=== PATIENT | female | born 1955 | race Hispanic/Latino ===

== ENCOUNTER 2021-10-19 20:46 | Emergency (ER) | payer SELFPAY ==
--- OUTSIDE RECORDS SUMMARY | 2021-10-19 20:50 | XMS REPORT | Continuity of Care Document ---
:1955 Author Organization [facility] t Address [address] [place] [address] Care Team Providers Name Role Phone BRIE Attending Clinician Unavailable Luke TORRES Attending Clinician Tavo Rousseau MD Attending Clinician ÁNGEL Attending Clinician Unavailable Thelma Purvis MD Attending Clinician THELMA PURVIS Attending Clinician Unavailable THELMA PURVIS Admitting Clinician Unavailable Payers Payer Name Policy Type Policy Number Effective Date Expiration Date S ource Problems Condition Condition Condition Status Onset Resolution Last Treating Co mments Source Name Details Category Date Date Treatment Clinician Date Malignant Malignant Disease Active [facility] neoplasm neoplasm 01-03 [facility] of 00:00: of upper-oute upper-oute 00 Me dicin r quadrant r quadrant e of right of right breast in breast in female, female, estrogen estrogen receptor receptor positive positive (HCCode) (HCCode) No known No known Disease [facility] r active active [facility] problems problems of Medicin e Allergies, Adverse Reactions, Alerts Allergy Allergy Status Severity Reaction(s) Onset Inactive Treating Comm ents Source Name Type Date Date Clinician Codeine Propensi Active Severe Shaky and [facility] to 06-19 [facility] adverse 00:00: of reaction 00 Medicin s to e drug CODEINE Allergy Active [facility] Social History Social Habit Start Date Stop Date Quantity Comments Source Alcohol intake [facility] History [facility] Alcohol [facility] or [facility] Std Drinks Medicine History [facility] Alcohol [facility] or [facility] Binge Medicine Sex Assigned At [facility] llege of Medicine History [facility] Alcohol 2018-11-29 2018-11-29 1 [facility] or College of Frequency 00:00:00 00:00:00 Medicine Smoking Status Start Date Stop Date Source Former smoker 2019-03-04 00:00:00 2019-03-04 00:00:00 [facility] Medications Ordered Filled Start Stop Current Ordering Indication Dosage Frequency Signature Comments Components Source Medication Medication Date Date Medication? Clinician (SIG) Name Name FLUTICASONE 2018-05 Yes 50mg Apply 50 [facility] PROPIONATE 0-25 mg [facility]ary EX 13:48: topically of 59 daily. Medicin Indication e s: 2 sprays in each nostril Magic 2018-05 Yes [id number] Swish and [place] [facility] Mouthwash 0-25 swallow Deary 00:00: 5-10 mL of 00 Q6H PRN1 Medicin part e Diphenhydr amine 12.5 mg/5 mL; 1 part Viscous lidocaine 2% (20mg/mL); 1 part Maalox (60mL) nystatin 2018-05 Yes 1{appli Apply 1 [place] [facility] (MYCOSTATIN 0-09 cation} applicatio Deary ) powder 00:00: n of 00 topically Medicin four times e daily. FLUTICASONE 2018-05 Yes 50mg Apply 50 [facility] PROPIONATE 0-04 mg Deary EX 15:13: topically of 37 daily. Medicin Indication e s: 2 sprays in each nostril dexamethaso 2018-05 Yes [id number] Take 2 Bin ne 0-04 tablets PO [facility]ary (DECADRON) 00:00: BID x3 of 4 MG tablet 00 days Medicin starting e the day before chemo sodium 2018-05 Yes 1{spray 1 [place] by [facility] chloride 0-04 } Nasal [place]ary (OCEAN) 00:00: route as of 0.65 % 00 needed for Medicin nasal spray Congestion e . loperamide 2018-05 Yes 1{tbl} Take 1 Tab [facility] (IMODIUM 0-04 by mouth 4 Colle ge A-D) 2 MG 00:00: times of tablet 00 daily as Medicin needed for e Diarrhea. dexamethaso 2018-05 Yes [id number] Take 2 Bin ne 0-04 tablets PO Deary (DECADRON) 00:00: BID x3 of 4 MG tablet 00 days Medicin starting e the day before chemo sodium 2018-05 Yes 1{spray 1 [place] by [facility] chloride 0-04 } Nasal [place] (OCEAN) 00:00: route as of 0.65 % 00 needed for Medicin nasal spray Congestion e . loperamide 2018-05 Yes 1{tbl} Take 1 Tab [facility] (IMODIUM 0-04 by mouth 4 Colle ge A-D) 2 MG 00:00: times of tablet 00 daily as Medicin needed for e Diarrhea. FLUTICASONE 2018- Yes 50mg Apply 50 [facility] PROPIONATE 8-16 mg Deary EX 16:57: topically of 14 daily. Medicin Indication e s: 2 sprays in each nostril ondansetron 2019- Yes [id number] 8mg Take 1 Tab Bin (ZOFRAN-ODT 8-16 by mouth [place] ) 8 mg 00:00: every 8 of disintegrat 00 hours as Medi sylvia ing tablet needed for e Nausea (chemother apy induced nausea). promethazin Yes [id number] 25mg Take 1 Tab Bin e 8-16 by mouth [place]ary (PHENERGAN) 00:00: every 6 of 25 MG 00 hours as Medicin tablet needed for e Nausea or Other (chemother apy induced nausea). lidocaine-p Yes [id number] Apply to [facility] rilocaine 8-[address] ([facility]) 00:00: hour of 2.5-2.5 % 00 before use Medi sylvia cream e ondansetron 2018- Yes [id number] 8mg Take 1 Tab Bin (ZOFRAN-ODT 8-16 by mouth [place] ) 8 mg 00:00: every 8 of disintegrat 00 hours as Medi sylvia ing tablet needed for e Nausea (chemother apy induced nausea). promethazin Yes [id number] 25mg Take 1 Tab [facility] e 8-16 by mouth Deary (PHENERGAN) 00:00: every 6 of 25 MG 00 hours as Medicin tablet needed for e Nausea or Other (chemother apy induced nausea). dexamethaso Yes [id number] Take 2 Bin ne 8-16 tablets PO Deary (DECADRON) 00:00: BID x3 of 4 MG tablet 00 days Medicin starting e the day before chemo lidocaine-p 2018- Yes [id number] Apply to [facility] rilocaine 8-[address] (EMLA) 00:00: hour of 2.5-2.5 % 00 before use Medi sylvia cream e ondansetron 2019- Yes [id number] 8mg Take 1 Tab [facility] (ZOFRAN-ODT 8-16 by mouth [place] ) 8 mg 00:00: every 8 of disintegrat 00 hours as Medi sylvia ing tablet needed for e Nausea (chemother apy induced nausea). promethazin 2019- Yes [id number] 25mg Take 1 Tab Bin e 8-16 by mouth [facility] (PHENERGAN) 00:00: every 6 of 25 MG 00 hours as Medicin tablet needed for e Nausea or Other (chemother apy induced nausea). lidocaine-p 2019- Yes [id number] Apply to [facility] rilocaine 8-16 port 1 [facility] (EMLA) 00:00: hour of 2.5-2.5 % 00 before use Medi sylvia cream e dexamethaso 2018- 2019- No [id number] Take 2 [facility] ne 8-16 10-04 tablets PO Deary (DECADRON) 00:00: 00:00 BID x3 of 4 MG tablet 00 :00 days Medicin starting e the day before chemo tramadol 2018- 2019- No 50mg Take 50 mg [facility] (ULTRAM) 50 12-16 by mouth. Co llege MG tablet 00:00: 04:59 of 00 :00 Medicin e tramadol 2018-0 2019- No 50mg Take 50 mg [facility] (ULTRAM) 50 12-16 by mouth. Co llege MG tablet 00:00: 04:59 of 00 :00 Medicin e cholecalcif 2019-0 Yes TAKE 1 [facility] 8-02 TABLET College (D3-50) 00:00: (50,000 of 01026 units 00 UNITS Medicin CAPS TOTAL) BY e MOUTH ONCE A WEEK. cholecalcif 2019-0 Yes TAKE 1 [facility] 8-02 TABLET College (D3-50) 00:00: (50,000 of 44753 units 00 UNITS Medicin CAPS TOTAL) BY e MOUTH ONCE A WEEK. cholecalcif 2019-0 Yes TAKE 1 [facility] 8-02 TABLET [employer] (D3-50) 00:00: (50,000 of 18576 units 00 UNITS Medicin CAPS TOTAL) BY e MOUTH ONCE A WEEK. metoprolol 2017- Yes 25mg Take 25 mg [facility] (TOPROL-XL) 2-06 by mouth. Col lege 25 MG XL 00:00: of tablet 00 Medicin e metoprolol 2017-0 Yes 25mg Take 25 mg [facility] (TOPROL-XL) 2-06 by mouth. Col lege 25 MG XL 00:00: of tablet 00 Medicin e metoprolol 2017-0 Yes 25mg Take 25 mg [facility] (TOPROL-XL) 2-06 by mouth. Col lege 25 MG XL 00:00: of tablet 00 Medicin e metoprolol 2017-0 Yes 25mg Take 25 mg [facility] (TOPROL-XL) 2-06 by mouth. Col lege 25 MG XL 00:00: of tablet 00 Medicin e lisinopril- 2015-05 Yes 1{tbl} Take 1 Tab [facility] hydrochloro 2-23 by mouth. Col lege thiazide 00:00: of (PRINZIDE, 00 Medicin ZESTORETIC) e 20-25 MG per tablet lisinopril- 2015-05 Yes 1{tbl} Take 1 Tab [facility] hydrochloro 2-23 by mouth. Col lege thiazide 00:00: of (PRINZIDE, 00 Medicin ZESTORETIC) e 20-25 MG per tablet sertraline 2015-05 Yes 100mg Take 100 [facility] (ZOLOFT) 2-23 mg by College 100 MG 00:00: mouth. of tablet 00 Medicin e simvastatin 2015-05 Yes 40mg Take 40 mg [facility] (ZOCOR) 40 2-23 by mouth. Ty ege MG tablet 00:00: of Medicin e sertraline 2015-05 Yes 100mg Take 100 [facility] (ZOLOFT) 2-23 mg by College 100 MG 00:00: mouth. of tablet 00 Medicin e simvastatin 2015-05 Yes 40mg Take 40 mg Bin (ZOCOR) 40 2-23 by mouth. Ty ege MG tablet 00:00: of Medicin e lisinopril- 2015-05 Yes 1{tbl} Take 1 Tab Bin hydrochloro 2-23 by mouth. Col lege thiazide 00:00: of (PRINZIDE, 00 Medicin ZESTORETIC) e 20-25 MG per tablet sertraline 2015-05 Yes 100mg Take 100 [facility] (ZOLOFT) 2-23 mg by College 100 MG 00:00: mouth. of tablet 00 Medicin e simvastatin 2015-05 Yes 40mg Take 40 mg Bin (ZOCOR) 40 2-23 by mouth. Ty ege MG tablet 00:00: of 00 Medicin e lisinopril- 2015-05 Yes 1{tbl} Take 1 Tab Bin hydrochloro 2-23 by mouth. Col lege thiazide 00:00: of (PRINZIDE, 00 Medicin ZESTORETIC) e 20-25 MG per tablet sertraline 2015-05 Yes 100mg Take 100 [facility] (ZOLOFT) 2-23 mg by College 100 MG 00:00: mouth. of tablet 00 Medicin e simvastatin 2015-05 Yes 40mg Take 40 mg [facility] (ZOCOR) 40 2-23 by mouth. Ty ege MG tablet 00:00: of Medicin e fenofibrate 2015-05 Yes 160mg Take 160 [facility] (LOFIBRA) 1-28 mg by College 160 MG 00:00: mouth. of tablet 00 Medicin e fenofibrate 2015-05 Yes 160mg Take 160 [facility] (LOFIBRA) 1-28 mg by College 160 MG 00:00: mouth. of tablet 00 Medicin e fenofibrate 2015-05 Yes 160mg Take 160 [facility] (LOFIBRA) 1-28 mg by College 160 MG 00:00: mouth. of tablet 00 Medicin e fenofibrate 2015-05 Yes 160mg Take 160 [facility] (LOFIBRA) 1-28 mg by College 160 MG 00:00: mouth. of tablet 00 Medicin e Immunizations Ordered Immunization Filled Immunization Date Status Commen ts Source Name Name Influenza Quad-PF 2018-01-28 Completed [facility] 00:00:00 of Medicine Influenza 2018-01-28 Completed [facility] Quadrivalent 3YRS+ 00:00:00 of Med icine Influenza Quad-PF 2018-01-28 Completed [facility] 00:00:00 of Medicine Influenza 2018-01-28 Completed [facility] Quadrivalent 3YRS+ 00:00:00 of Med icine Influenza Quad-PF 2018-01-28 Completed [facility] 00:00:00 of Medicine Influenza 2018-01-28 Completed [facility] Quadrivalent 3YRS+ 00:00:00 of Med icine Influenza Quad-PF 2018-01-28 Completed [facility] 00:00:00 of Medicine Influenza 2018-01-28 Completed [facility] Quadrivalent 3YRS+ 00:00:00 of Med icine Influenza Quad-PF 2017-01-23 Completed [facility] 00:00:00 of Medicine Influenza Quad-PF 2017-01-23 Completed [facility] 00:00:00 of Medicine Influenza Quad-PF 2017-01-23 Completed [facility] 00:00:00 of Medicine Influenza Quad-PF 2017-01-23 Completed [facility] 00:00:00 of Medicine Vital Signs Vital Name Observation Time Observation Value Comments Source Systolic blood 2019-03-04 13:44:00 151 mm[Hg] [facility] Medicine Diastolic blood 2019-03-04 13:44:00 67 mm[Hg] [facility] Medicine Heart rate 2019-03-04 13:44:00 60 /min [facility] Body temperature 2019-03-04 13:44:00 36.67 [facility] Respiratory rate 2019-03-04 13:44:00 16 /min [facility] Body height 2019-03-04 13:44:00 152.4 cm [facility] Body weight 2019-03-04 13:44:00 88.996 kg [facility] BMI 2019-03-04 13:44:00 38.32 kg/m2 [facility] BMI 2019-02-11 15:12:00 37.69 kg/m2 [facility] Systolic blood 2019-02-11 15:12:00 138 mm[Hg] [facility] Medicine Diastolic blood 2019-02-11 15:12:00 68 mm[Hg] [facility] Medicine Heart rate 2019-02-11 15:12:00 54 /[facility] temperature 2019-02-11 15:12:00 36.44 [facility] Body height 2019-02-11 15:12:[facility] Body weight 2019-02-11 15:12:00 87.544 kg [facility] Systolic blood 2018-12-24 16:10:00 134 mm[Hg] [facility] Medicine Diastolic blood 2018-12-24 16:10:00 73 mm[Hg] [facility] Medicine Heart rate 2018-12-24 16:10:00 64 /min [facility] Body temperature 2018-12-24 16:10:00 36.67 [facility] Respiratory rate 2018-12-24 16:10:00 16 /min [facility] Body height 2018-12-24 16:10:00 152.4 cm [facility] Body weight 2018-12-24 16:10:00 86.183 kg [facility] BMI 2018-12-24 16:10:00 37.11 kg/m2 [facility] Systolic blood 2018-12-24 14:11:00 134 mm[Hg] [facility] Medicine Diastolic blood 2018-12-24 14:11:00 73 mm[Hg] [facility] Medicine Heart rate 2018-12-24 14:11:00 64 /min [facility] Body temperature 2018-12-24 14:11:00 36.67 [facility] Body height 2018-12-24 14:11:00 152.4 cm [facility] Body weight 2018-12-24 14:11:00 86.183 kg [facility] BMI 2018-12-24 14:11:00 37.11 kg/m2 [facility] Procedures This patient has no known procedures. Plan of Care Planned Activity Planned Date Details Comments Source Diagnostic Test 2018-12-24 ECHO,COMPLETE WITH Expected: [facility] Pending 00:00:00 SALINE [code = 12/24/2018, of Medicine 93845-1] Expires: 12/25/2019 Future Scheduled COLON CANCER [facility] egmary Test SCREENING: of Medicine COLONOSCOPY [code = COLON CANCER SCREENING: COLONOSCOPY] Future Scheduled TETANUS SHOT (ADULT) [facility] Test [code = TETANUS SHOT of Medi cine (ADULT)] Future Scheduled BMI FOLLOW UP PLAN [facility] Test [code = BMI FOLLOW UP of Med icine PLAN] Future Scheduled HEPATITIS C SCREENING [facility] Test [code = HEPATITIS C of Medic ine SCREENING] Future Scheduled FALL SCREEN [code = [employer] Test FALL SCREEN] of Medicine Future Scheduled OSTEOPOROSIS [facility] Test SCREENING [code = of Medicin e OSTEOPOROSIS SCREENING] Future Scheduled PNEUMOVAX >=65 [facility] Co llege Test (PPSV23) [code = of Medicine PNEUMOVAX >=65 (PPSV23)] Future Scheduled PREVNAR >= 65 (PCV13) [employer] Test [code = PREVNAR >= 65 of Med icine (PCV13)] Future Scheduled FLU VACCINE > 6 [facility] C ollege Test MONTHS [code = FLU of Medici ne VACCINE > 6 MONTHS] Future Scheduled MAMMOGRAM ANNUAL [facility] College Test [code = MAMMOGRAM of Medicin e ANNUAL] Future Scheduled COLON CANCER [facility] Test SCREENING: of Medicine COLONOSCOPY [code = COLON CANCER SCREENING: COLONOSCOPY] Future Scheduled TETANUS SHOT (ADULT) [place] [facility] [employer] Test [code = TETANUS SHOT of Medi cine (ADULT)] Future Scheduled BMI FOLLOW UP PLAN [facility] r College Test [code = BMI FOLLOW UP of Med icine PLAN] Future Scheduled HEPATITIS C SCREENING [employer] Test [code = HEPATITIS C of Medic ine SCREENING] Future Scheduled FALL SCREEN [code = [employer] Test FALL SCREEN] of Medicine Future Scheduled OSTEOPOROSIS [facility] Test SCREENING [code = of Medicin e OSTEOPOROSIS SCREENING] Future Scheduled PNEUMOVAX >=65 [facility] Co [facility]lege Test (PPSV23) [code = of Medicine PNEUMOVAX >=65 (PPSV23)] Future Scheduled PREVNAR >= 65 (PCV13) [employer] Test [code = PREVNAR >= 65 of Med icine (PCV13)] Future Scheduled FLU VACCINE > 6 [facility] C ollege Test MONTHS [code = FLU of Medici ne VACCINE > 6 MONTHS] Future Scheduled MAMMOGRAM ANNUAL [facility] College Test [code = MAMMOGRAM of Medicin e ANNUAL] Future Scheduled OTHER SUPPLY [code = Ordered: [facility] College Test NOCPT] 12/24/2018 of Medicine Future Scheduled CBC W/AUTO DIFF WITH Ordered: [facility] College Test PLATELETS [code = 12/24/2018 of Medicin e 27432-5] Future Scheduled COMPREHENSIVE Ordered: [facility] Col [facility]ge Test METABOLIC PANEL [code 12/24/2018 of Med icine = 37335-0] Future Scheduled COLON CANCER [facility] Test SCREENING: of Medicine COLONOSCOPY [code = COLON CANCER SCREENING: COLONOSCOPY] Future Scheduled TETANUS SHOT (ADULT) [place] [facility] [employer] Test [code = TETANUS SHOT of Medi cine (ADULT)] Future Scheduled BMI FOLLOW UP PLAN [employer] Test [code = BMI FOLLOW UP of Med icine PLAN] Future Scheduled HEPATITIS C SCREENING [employer] Test [code = HEPATITIS C of Medic ine SCREENING] Future Scheduled FALL SCREEN [code = [employer] Test FALL SCREEN] of Medicine Future Scheduled OSTEOPOROSIS [facility] Test SCREENING [code = of Medicin e OSTEOPOROSIS SCREENING] Future Scheduled PNEUMOVAX >=65 [facility] [employer] Test (PPSV23) [code = of Medicine PNEUMOVAX >=65 (PPSV23)] Future Scheduled PREVNAR >= 65 (PCV13) [employer] Test [code = PREVNAR >= 65 of Med icine (PCV13)] Future Scheduled FLU VACCINE > 6 [facility] C ollege Test MONTHS [code = FLU of Medici ne VACCINE > 6 MONTHS] Future Scheduled MAMMOGRAM ANNUAL [facility] Test [code = MAMMOGRAM of Medicin e ANNUAL] Future Scheduled COLON CANCER [facility] Test SCREENING: of Medicine COLONOSCOPY [code = COLON CANCER SCREENING: COLONOSCOPY] Future Scheduled TETANUS SHOT (ADULT) [place] [facility] [employer] Test [code = TETANUS SHOT of Medi cine (ADULT)] Future Scheduled BMI FOLLOW UP PLAN [employer] Test [code = BMI FOLLOW UP of Med icine PLAN] Future Scheduled HEPATITIS C SCREENING [employer] Test [code = HEPATITIS C of Medic ine SCREENING] Future Scheduled FALL SCREEN [code = [employer] Test FALL SCREEN] of Medicine Future Scheduled OSTEOPOROSIS [facility] Test SCREENING [code = of Medicin e OSTEOPOROSIS SCREENING] Future Scheduled PNEUMOVAX >=65 [facility] Co [facility]lege Test (PPSV23) [code = of Medicine PNEUMOVAX >=65 (PPSV23)] Future Scheduled PREVNAR >= 65 (PCV13) [employer] Test [code = PREVNAR >= 65 of Med icine (PCV13)] Future Scheduled FLU VACCINE > 6 [facility] C ollege Test MONTHS [code = FLU of Medici ne VACCINE > 6 MONTHS] Future Scheduled MAMMOGRAM ANNUAL [facility] Test [code = MAMMOGRAM of Medicin e ANNUAL] Encounters Start End Encounter Admission Attending Care Care Encounter Source Date/Time Date/Time Type Type Clinicians Facility Department ID 2021-04-30 2021-04-30 Outpatient [facility] [id number] 00:00:00 00:00:[address] 2020-07-06 2020-07-06 Outpatient BRIE [facility] [id number] [address] 00:00:00 00:00:00 RON [address] 2020-06-15 2020-06-15 Outpatient [facility] [id number] 00:00:00 00:00:[address] 2019-06-17 2019-06-17 Outpatient [facility] [id number] 2-2 SLE 16:07:07 16:07:07 [id number] 2019-03-04 2019-03-04 Office DANTE Butler [id number] [facility] 08:40:34 09:10:34 Visit Filippo Lewisr [id number] Co llege 0.2.7.2.686 of [id number] Medi sylvia 500 e 2019-02-11 2019-02-11 [facility] [id number] [facility] 08:53:09 13:00:24 Visit Natalya Rousseau [id number] C dulce Ellis 0.2.7.2.686 of [id number] Medi sylvia 500 e 2018-12-24 2018-12-24 Office TONY Purvis [id number] [facility] 10:53:48 12:22:53 Visit Linda Lucia AMBULATOR [id number] College Y 0.2.7.2.686 of [id number] Medi sylvia 805 e 2018-12-24 2018-12-24 Office Nemati BCM [id number] [facility] 08:47:55 09:07:55 Visit Onelia AMBULATOR [id number] College Rhonda Y [id number] of [id number] Medi sylvia 000 e Results Test Description Test Time Test Comments Results Result [facility] e Comments NAEEM CLAROS, 2019-01-14 Reason for FINAL REPORT PATIENT FLUORO 21:24:00 Exam:->BREAST ID: [id number] Left CANCER internal jugular chest port insertion History: Right breast cancer. Modality: Sonography and fluoroscopy. Sedation: Versed 1.0 mg and fentanyl 50 mcg given intravenously for conscious sedation. Vital signs were monitored throughout the procedure by a nurse, and remained stable. Physician intra-service time was 20 minutes. Explosive Operator: Godfrey Benton MD Manager Software: None. Approach: Left internal jugular vein Estimated blood loss: < 5 cc. Specimen: None. Fluoroscopy Time: 0.1 min.Reference Air Kerma (Ka, r): 0.3 mGy. Technique: Informed written consent was obtained. Discussion of risks, benefits, and alternatives were made with the patient. The patient expressed understanding and agreed to proceed. A universal timeout was performed prior to starting the procedure. All elements maximal sterile barrier technique was utilized for this procedure, including utilization of sterile scrub solution for skin prep, a large sterile sheet to cover the areas of the patient that were not prepped, and hand hygiene, mask, head covering, and sterile gown for performing radiologist and scrub technologist. The skin was anesthetized with 2% lidocaine. Ultrasound evaluation showed a patent and compressible left internal jugular vein, which was punctured under direct real-time ultrasound guidance with a micropuncture needle. An ultrasound image was saved to PACS. A 0.018 inch wire was placed through the needle into the right atrium. A 4 Lao micropuncture sheath was placed. A subcutaneous tunnel and pocket were created in the left anterior chest wall by blunt dissection. The pocket was flushed with antibiotic solution. A 6F [employer] Smart port was placed within the pocket and the catheter brought through the tunnel. The catheter was cut at 27 cm. A peel-away sheath was placed in the left IJ vein and the catheter was advanced through the sheath, with its distal tip terminating in the cavoatrial junction. The peel-away sheath was removed. The port was flushed and aspirated easily following placement. The skin incision was closed with 3-0 running subcuticular Monocryl and Steri-Strips. The small jugular incision site was closed using Steri-Strips. The patient tolerated the procedure well and left the department in the same condition. Patient received 1 gram of Ancef intravenously pre-procedure. Results: Spot radiograph of the chest demonstrates the new left IJ Port-A-Cath to lie in the expected position with its tip overlying the cavoatrial junction. Impression: Successful, uncomplicated placement of a left internal jugular chest port. The port is ready for immediate use. Signed: Godfrey [place] Verified Date/Time: 01/14/2019 21:24:33 Reading Location: [facility] [id number] Angio Body Reading Room 2019-01-14 10:52:00 Test Item Value Reference Range Interpretation Comme nts PARTIAL THROMBOPLASTIN TIME (BEAKER) (test code = 760) 38.6 seconds 22.5-36.0 H PROTHROMBIN [id number] 10:51:00 Test Item Value Reference Range Interpretation Comments PROTIME (BEAKER) (test code = 13.0 seconds 11.9-14.2 759) INR (BEAKER) (test code = 370) 1.0 <=5.9 Effective 10/06/2018: PT Reference Range ChangeNew: 11.9-14.2 Previous: 11.7- 14.7RECOMMENDED COUMADIN/WARFARIN INR THERAPY RANGESSTANDARD DOSE: 2.0-3.0 Includes: PROPHYLAXIS for venous thrombosis, systemic embolization; TREATMENT for venous thrombosis and/or pulmonary embolus.HIGH RISK: Target INR is2.5-3.5 for patients wiht mechanical heart valves.CBC W/PLT COUNT & AUTO [id number] 10:45:00 Test Item Value Reference Range Interpretation Comments WHITE BLOOD CELL COUNT (BEAKER) 7.0 K/ L 3.5-10.5 (test code = 775) RED BLOOD CELL COUNT (BEAKER) 4.00 M/ L 3.93-5.22 (test code = 761) HEMOGLOBIN (BEAKER) (test code = 12.5 GM/DL 11.2-15.7 410) HEMATOCRIT (BEAKER) (test code = 38.8 % 34.1-44.9 411) MEAN CORPUSCULAR VOLUME (BEAKER) 97.0 fL 79.4-94.8 H (test code = 753) MEAN CORPUSCULAR HEMOGLOBIN 31.3 pg 25.6-32.2 (BEAKER) (test code = 751) MEAN CORPUSCULAR HEMOGLOBIN CONC 32.2 GM/DL 32.2-35.5 (BEAKER) (test code = 752) RED CELL DISTRIBUTION WIDTH 13.0 % 11.7-14.4 (BEAKER) (test code = 412) PLATELET COUNT (BEAKER) (test 147 K/CU MM 150-450 L code = 756) MEAN PLATELET VOLUME (BEAKER) 12.4 fL 9.4-12.3 H (test code = 754) NUCLEATED RED BLOOD CELLS 0 /100 WBC 0-0 (BEAKER) (test code = 413) NEUTROPHILS RELATIVE PERCENT 63 % (BEAKER) (test code = 429) LYMPHOCYTES RELATIVE PERCENT 27 % (BEAKER) (test code = 430) MONOCYTES RELATIVE PERCENT 7 % (BEAKER) (test code = 431) EOSINOPHILS RELATIVE PERCENT 2 % (BEAKER) (test code = 432) BASOPHILS RELATIVE PERCENT 1 % (BEAKER) (test code = 437) NEUTROPHILS ABSOLUTE COUNT 4.43 K/ L 1.56-6.13 (BEAKER) (test code = 670) LYMPHOCYTES ABSOLUTE COUNT 1.87 K/ L 1.18-3.74 (BEAKER) (test code = 414) MONOCYTES ABSOLUTE COUNT (BEAKER) 0.48 K/ L 0.24-0.36 H (test code = 415) EOSINOPHILS ABSOLUTE COUNT 0.15 K/ L 0.04-0.36 (BEAKER) (test code = 416) BASOPHILS ABSOLUTE COUNT (BEAKER) 0.07 K/ L 0.01-0.08 (test code = 417) IMMATURE GRANULOCYTES-RELATIVE 0 % 0-1 PERCENT (BEAKER) (test code = 2801) TISSUE [id number] 15:44:00Surgical Pathology Report Case: [id number] Authorizing Provider: Linda Purvis MD Collected: 12/16/2018 1609 Ordering Location: [facility] Received: 12/16/2018 1619 SERVICES Pathologist: Lissy Hinton MD Specimens: A) - Soft Tissue, Other, Right lumpectomy: short stitch superior, long stitch lateral. For immediate margin evaluation and specimen x-ray. B) - Lymph Node, [place], Right sentinel node 64, #1 C) - Axilla, Right, Right axillary tissue D) - Breast, Right, Right breast anterior margin: stitch gaytan true margin E) - Breast, Right, Right breast medial margin: stitch gaytan true margin F) - Breast, Right,Right breast inferior margin: stitch gaytan true margin G) - Breast, Right, Right breast lateral margin: stitch gaytan true margin H) - Breast, Right, Rightbreast superior margin: stitch gaytan true margin I) - Breast, Right, Right breast deep margin: stitch gaytan true margin REASON FOR ADDENDUM: TO REPORT BIOMARKERS RESULTS.- BIOMARKERS PERFORMED ON SECTION # [id number] - ESTROGEN RECEPTOR: NEGATIVE - PROPORTION SCORE: 0/5 - INTENSITY SCORE: 0/3 - SUMMARY: 0% POSITIVE, NO SIGNAL - PROGESTERONE RECEPTOR: NEGATIVE - PROPORTION SCORE:0/5- INTENSITY SCORE: 0/3 - SUMMARY: 0% POSITIVE, NO SIGNAL - HER 2 OVER-EXPRESSION: NEGATIVE (SCORE: 0 ) - Ki67: 72% (cut off- 20%)ADDITIONAL PB: [id number] X4CAP REGULATION: FIXATION TIME FOR BIOMARKERS ASSESSMENTCollection date and time: 12/16/2018, 1606Placed in fixative date and time: 12/16/2018, 1619Removed from formalin date and time: 12/18/2018, 1400Methodology: Fixation type and length: tissue was fixed in 10% neutral buffered formalin for a minimal of at least 6 hoursand not longer than 72 hours. Antibody and Assay Methodology: Antibodies for ER, PgR, Her2 and Ki67 were assessed using clones SP1 (Ivor), 1294 (DAKO), 4B5 (FDA Approved [employer]) and 30-9(Ivor) respectively. Control Slides Examined: In-house known ER, AL, HER2 and Ki67 positive controls were evaluated along with test tissue. These control slides run alongside of the patients sample show appropriate staining. Internal positive and negative controls when available are evaluated.Interpretive Criteria: The staining results according to the ASCO/CAP guidelines for HER2 (Leola GUZMÁN etal. Arch Pathol Lab Med 2018, July 01) and ER/AL (Nghia SAEZ et al. Arch Pathol Lab Med 2010; 134:e48-e72) by ASCO/CAP guidelines.ER and AL "positive" requires greater or equal to 1% tumor cells with nuclear staining.HER2 "positive" (3+) requires circumferential membrane staining that is completeand intense in more than 10% of tumor cells. HER2 "equivocal" (2+) requires weak to moderate complete membrane staining observed in more than 10% of tumor cells .HER2 "negative" (1+) requires incomplete membrane staining that is faint/barely perceptible and in more than 10%of tumor cells. HER2 "negative (0)" requires no staining or membrane staining that is incomplete and is faint/barely perceptibleand in less than or equal to 10% of tumor cells. The ER/AL Proportion Score indicates the proportionof positive staining tumor cells (0 = none; 1 < 1/100; 2 = 1/100-1/10; 3 = 1/10-1/3; 4 = 1/3-2/3;5> 2/3). The intensity score indicates the average intensity of positive staining tumor cells (0= none; 1 = weak; 2 = intermediate; 3 = strong). For the purpose of defining "positive", the proportion and intensity scores were added to obtain a total score (range 0-8). ER and PgR "positive" (total score >2) were defined in studies correlating IHC total scores with clinical outcome in patients receiving hormonal therapy (see: Modern Pathol 11:155, 1997; J Clin Oncol 17:1474, 1998; Int J Cancer 89:111, 2000; Breast Cancer Res Treat 76:S36[abst#30], 2002). Immunohistochemistry technical testing was performed at [facility], Pathology Laboratory where it was developed and its performance characteristics were determined. It has not been cleared or approved by the U.S. Food and Drug Administration. The FDA has determined that such clearance or approval is not necessary.The test is used for clinical purposes. It should not be regarded as investigational or for research. This laboratory is certified under the Clinical Laboratory Improvement Amendments of 1988 (CLIA-88)as qualified to perform high complexity clinical laboratory testing.Addendum electronically signed by Lissy Hinton MD on 12/24/2018 at 3:44 PMA. BREAST, RIGHT, NEEDLE LOCALIZED LUMPECTOMY: - INFILTRATING DUCTAL CARCINOMA, WITH BASAL-LIKE AND MATRIX-RICH METAPLASTIC FEATURES - PLEASE SEE COMMENT - GREATEST MICROSCOPIC DIMENSION: 18 MM - HISTOLOGICAL GRADE: 3/3 (3+3+3) BY ESBR CRITERIA - MITOTIC COUNT: 106 MITOSES/10 HPF - TUMOR INFILTRATING LYMPHOCYTES: MODERATE - NO LYMPHOVASCULAR SPACE INVASION IDENTIFIED - SURGICAL MARGINS: NEGATIVE - POSTERIOR MARGIN AT 0.5 MM - ANTERIORMARGIN AT 1.4 MM - LATERAL MARGIN AT 6 MM - BIOPSY SITE CHANGES AND CLIP IDENTIFIED - SKIN, NO PATHOLOGIC CHANGESB. LYMPH NODE, RIGHT AXILLARY SENTINEL # 1, 64, BIOPSY: - ONE BENIGN LYMPH NODE (0/1)C. LYMPH NODES, RIGHT AXILLARY REGION, DISSECTION: - TWO BENIGN LYMPH NODES (0/2)D. BREAST, RIGHT, NEW ANTERIOR MARGIN, RE--EXCISION: - FIBROCONNECTIVE AND ADIPOSE TISSUEE. BREAST, RIGHT, NEW MEDIAL MARGIN, RE--EXCISION: - BENIGN BREAST TISSUEF. BREAST, RIGHT, INFERIOR MARGIN, RE--EXCISION: - BENIGN BREAST TISSUEG. BREAST, RIGHT, LATERAL MARGIN, RE--EXCISION: - BENIGN BREAST TISSUEH. BREAST, RIGHT, SUPERIOR MARGIN, RE--EXCISION: - BENIGN BREAST TISSUEI. BREAST, RIGHT, POSTERIOR MARGIN, RE--EXCISION: -FIBROCONNECTIVE AND ADIPOSE TISSUE Signing Pathologist Direct Phone Line: [phone] signed by Lissy Hinton MD on 12/23/2018 at 6:26 PMSections from the lumpectomy specimenshow a high grade invasive carcinoma that is present predominantly in 3 consecutive breast slices which corresponds to 18 mm in greatest dimension approximately. 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 Synaptophysin and CD117 immunostains have been performed with adequate controls. The high grade invasive ductal carcinoma with basaloid features is positive for CD117 and negative for Synaptophysin,while the carcinoma with metaplastic features is negative for both CD117 and Synaptophysin immunostains. All final margins are at more than 10 mm from the tumor.Biomarkers are pending, an addendum willfollow.INVASIVE CARCINOMA OF THE BREAST (Breast Invasive - All Specimens)SPECIMEN Procedure: Excision (less than total mastectomy) Specimen Laterality: Right TUMOR Histologic Type: Invasive carcinoma of no special type (ductal, not otherwise specified) Histologic Type Comments: with basal-like and matrix rich metaplastic features Glandular (Acinar) / Tubular Differentiation: Score 3 Nuclear Pleomorphism: Score 3 Mitotic Rate: Score 3 (>=8 mitoses per mm2) Overall Grade: Grade 3 (scores of 8 or 9) Tumor Size: Greatest dimension of largest invasive focus in Millimeters (mm): 18 Millimeters (mm) Tumor Focality: Single focus of invasive carcinoma Ductal Carcinoma In Situ (DCIS): Not identified Lobular Carcinoma In Situ (LCIS):No LCIS in specimen Tumor Extent: Nipple DCIS: Not applicable Accessory Findings: Lymphovascular Invasion: Not identified Dermal Lymphovascular Invasion: Not identifi ed Treatment Effect: No known presurgical therapy MARGINS Invasive Carcinoma Margins: Uninvolved by invasive carcinoma Distance from Closest Margin in Millimeters (mm): Distance is> 10 Millimeters (mm) Closest Margin: Cannot be determined: With the additional margins resected, the tumor is more than 10 mm from all margins. LYMPH NODES Regional Lymph Nodes: Uninvolved by tumor cells Number of Lymph Nodes Examined: 3 Number of [place] Nodes Examined: 1 PATHOLOGIC STAGE CLASSIFICATION (pTNM, AJCC 8th Edition) TNM Descriptors: Not applicable Primary Tumor (Invasive Carcinoma) (pT): pT1c Regional Lymph Nodes (pN): Category (pN): pN0 ADDITIONAL FINDINGS Additional Pathologic Findings: Sclerosing adenosis A. 46146, 03640, 04326, 42449, 13296 x4B. 47180U. 40936N. 44071M. 68167C. 59192X. 18723L. 35135J. 75540Kexhtijsp neoplasm of right female breast A. Breast, right lumpectomy, short stitch superior, long stitch lateral for immediate margin evaluation and specimen x-ray; B. Lymph node, right sentinel node 64, #1; C. Right axillary tissue; D. Right breast anterior margin: stitch gaytan true margin; E. Right breast medial margin: stitch gaytan true margin; F. Right breast inferior margin: stitch gaytan true margin; G. Right breast lateral margin: stitch gaytan true margin; H. Right breast superior margin: stitch gaytan true margin; I. Right breast deep margin: stitch gaytan true marginA. The specimen is received fresh labeled with the patient's name, medical record number and "right breast" with the description "right lumpectomy, short stitch superior, long stitch lateral for immediate margin evaluation and specimen x-ray". It consists of a 23 gm, 6.5 x 3.5 x 1.5 cm lumpectomy specimen oriented with a short stitch superior and a long stitch lateral. A guide wire is identified. The specimen is serially sectioned from superior to inferior into 11 consecutively ordered slices. There is a 1.5 x 0.5 cm skin that is loosely attached to the superior margin. A 1.1 x 1.2 x 1.1 cm well-circumscribed, alegre and yellow, firm mass is identified in slices 7, 8 and 9. A ribbon clip is identified in slice # 8 in the center of the mass. The mass is at 0.3 cm from posterior, 0.4 cm from anterior, 1 cm from lateral, 2 cm from medial, 1 cm from inferior and 3 cm from superior margins. The remainder of the breast parenchyma is mainly adipose tissue.Ink code: Blue-superior, red-inferior, posterior-black, yellow-anterior, green-lateral, orange-medial.Section code: A1, skin, perpendicular sections; A2, marketing representative sections ofsuperior margin, perpendicular section; A3-A5, slice #6 entirely submitted; A6-A8, slice #7 entirelysubmitted (A7- tumor); A9-A12, slice #8, entirely submitted (10 and 11 are mirror sections, A10 contains clip and tumor); A13-A15, slice #9, entirely submitted (A14 contains tumor); A16-A17, slice #10, entirely submitted ; A18, marketing representative sections of slice #11, inferior margin, perpendicular sections. SM/ewB. Received in formalin labeled with the patient's name, medical record number and "lymph node, sentinel" with the description "right sentinel node 64, # 1" is a 5 x 2 x 1 cm portion of yellow fatty tissue. One lymph node measuring 3 x 2 x 1 cm is identified. The lymph node is serially sectioned and submitted entirely in cassettes B1 through B3. C. Received in formalin labeled with the patient's name, medical record number and "right axilla" with the description "right axillary tissue" is a 3.5 x 3.5 x 1.5 cm alegre-yellow lobulated fatty tissue. Four possible lymph nodes ranging between 1.5to 2 cm in greatest dimension are identified. The lymph nodes are submitted entirely in cassettes C1 through C3 (C1, one possible lymph node; C2, two possible lymph nodes; C3, one possible lymph node)D. Received in formalin labeled with the patient's name, medical record number and "right breast" withthe description "Right breast anterior margin: stitch gaytan true margin is a 2 x 1.5 x 1 cm irregular fatty tissue. The specimen is oriented with a black stitch on one surface. The stitch area is inkedblue and the opposite surface is inked black and the specimen is specimen is serially sectioned and is submitted entirely in cassettes D1 through D3. E. Received in formalin labeled with the patient's name, medical record number and "right breast" with the description "Right breast medial margin: stitch gaytan true margin" is a 3 x 1.4 x 1.5 cm alegre-yellow lobulated fatty tissue marked with stitch for true margin. The true margin is inked blue and the opposite margin is inked black. The specimen is serially sectioned and submitted entirely in cassettes E1 through E3. F. Received in formalin labeled with the patient's name, medical record number and "right breast" with the description "Right breast inferior margin: stitch gaytan true margin" is a 3.2 x 2.1 x 1 cm alegre-yellow lobulated fatty tissue marked with stitch for true margin. The true margin is inked blue. The opposite margin is inked black. The specimen is serially sectioned and submitted entirely in cassettes F1 through F4. G. Received in formalin labeled with the patient's name, medical record number and "right breast" with the description "Right breast lateral margin: stitch gaytan true margin" is a 2.8 x 1.8 x 1.5 cm alegre-yellow lobulated fatty tissue marked with stitch for true margin. The true margin is inked blue and the opposite michela in is inked black and the specimen is serially sectioned and submitted entirely in cassettes G1 through G3. H. Received in formalin labeled with the patient's name, medical record number and "right breast" with the description "Right breast superior margin: stitch gaytan true margin" is a 2.2 cm in diameter disc- like portion of fatty tissue marked with a stitch for true margin. The true margin is inked blue and the opposite margin is inked black. The specimen is serially sectioned and submitted entirely in cassettes H1 through H3. MA/plI. Received in formalin labeled with the patient's name, medical record number and "right breast: with the description "Right breast deep margin: stitch gaytan true margin" is a 3 x 2 x 1.5 cm alegre-yellow lobulated fatty tissue marked with stitch for true margin. The true margin is inked blue and the opposite margin is inked black. The specimen is serially sectioned and submitted entirely in cassettes I1 through I4. MA/plINTRAOPERATIVE GROSS CONSULTATION DIAGNOSIS:A. BREAST, RIGHT, NEEDLE-LOCALIZED LUMPECTOMY: - MASS AND CLIP X1 IDENTIFIED CLOSE TO ANTERIOR ANDPOSTERIOR EDGESResults were reported to Dr. Purvis by Dr. Turner at 4:36 p.m. A. - I. Performed.The interpretation of this case included the use of immunohistochemistry or special stains.Immunostains per formed:[id number] Slides Examined: In-house known positive controls were evaluated along with the test tissue. These control slides run alongside of the patients sample show appropriate staining. Internal positive and negative controls when available are evaluated Immunohistochemistrytechnical testing was performed at [facility], Pathology Laboratory where it was developed and its performance characteristics were determined. It has not been cleared or approvedby the U.S. Food and Drug Administration. The FDA has determined that such clearance or approval is not necessary. The test is used for clinical purposes. It should not be regarded as investigational or for research. This laboratory is certified under the Clinical Laboratory Improvement Amendments of 1988 (CLIA-88) as qualified to perform high complexity clinical laboratory testing.SENTINEL NODE INJECTION, [id number] 15:31:00Reason for exam:->right breast cancerFINAL REPORT PROCEDURE: SENTINEL NODE LOCALIZATION - NON IMAGING INDICATION: Infiltrating ductal carcinoma of the right breast PROTOCOL: A total of 1.3 mCi of Tc-99m tilmanocept was injected in the right breast by the nuclear technologist. One aliquot was injected subcutaneously in the subareolar area, and one aliquot was injected intradermally at the 2 o'clock position. IMPRESSION: Radiopharmaceutical injection for intraoperative sentinel node localization. Signed: Leticia Unger MDReport Verified Date/Time: 12/16/2018 15:31:19 Reading Location: [address] [place] [address] Reading Room , U/S, BREAST, PATHOLOGY, LOCAL, [id number] 11:06:00Reason for exam:- >right breast cancerMRN#: [id number] - MM, U/S, BREAST, PATHOLOGY, LOCAL, RIGHTULTRASOUND GUIDED WIRE LOCALIZATION RIGHT BREAST WITH POST DIGITAL MAMMOGRAPHIC IMAGIN12/16/2018PATIENT CONSENT: The procedure, risks and benefits, alternatives were discussed with the patient. Informed consent was obtained. A time-outwas performed. A wire localization using ultrasound guidance was performed for the mass located inthe right breast at 1 o'clock middle depth. This was described on the previous biopsy report. The skin was prepped in the usual manner. The localization was approached from the medial aspect. A wire was inserted into the targeted area under ultrasound guidance. Post placement digital mammographicimaging demonstrates the tip traverses the targeted area. IMPRESSION: WIRE LOCALIZATIONWire localization for the mass in the right breast at 1 o'clock middle depth was successful with no apparent post procedure complications. Mick Condon M.D. pth/penrad:12/16/2018 11:06:39 Terrazzo Grinder: Priyanka Gibson [facility], [facility] [id number] BUN AND [id number] 08:41:00 Test Item Value Reference Range Interpretation Comments BLOOD UREA NITROGEN 36 mg/dL 7-21 H (BEAKER) (test code = 354) CREATININE (BEAKER) 1.02 mg/dL 0.57-1.25 (test code = 358) EGFR (BEAKER) (test mL/min/1.73 INSUFFIC IENT CLINICAL code = 1092) sq m DATA TO CALCULA TE ESTIMATED GFR. [id number] 08:40:00 Test Item Value Reference Range Interpretation Comments SODIUM (BEAKER) (test code = 381) 136 meq/L 136-145 POTASSIUM (BEAKER) (test code = 4.6 meq/L 3.5-5.1 379) CHLORIDE (BEAKER) (test code = 382) 107 meq/L 98-107 CO2 (BEAKER) (test code = 355) 21 meq/L 22-29 L [id number] 08:18:00 Test Item Value Reference Range Interpretation Comments HEMOGLOBIN (BEAKER) (test code = 12.1 GM/DL 11.2-15.7 410) PLATELET [id number] 08:18:00 Test Item Value Reference Range Interpretation Comments PLATELET COUNT (BEAKER) (test 158 K/CU MM 150-450 code = 756)
[2021-10-19 21:55] LABS: Absolute Lymphocytes (CBC) 1.4 K/uL (0.7-4.9); Hematocrit 44.3 % (36.0-45.0); Lymphocytes % 21.6 % (15.3-44.8); MPV 9.5 fL (7.6-11.3)
[2021-10-19 22:05] LABS: Protime INR 1.08
--- NOTE | 2021-10-19 22:09 | RAD REPORT ---
EXAM DESCRIPTION: RAD - Chest Single View - 10/19/2021 9:30 pm CLINICAL HISTORY: CHEST PAIN COMPARISON: None TECHNIQUE: AP portable chest image was obtained 10/19/2021 9:30 pm . FINDINGS: No acute lung parenchymal process seen. Left subclavian Port-A-Cath in place with the tip at the SVC atrial junction. Numerous surgical clips are seen in the right-side chest. No telma mass or lymphadenopathy seen. Perihilar markings are mildly prominent with the baseline unknown for the geovanni ent. Heart and vasculature are normal. No measurable pleural effusion and no pneumothorax. No acute b alpesh abnormality seen. No acute aortic findings suspected. IMPRESSION: No peripheral mass, consolidation or significant failure. Perihilar markings are mildly prominent. Baseline is unknown for the patient. Minimal viral infiltrat e or interstitial edema pattern cannot be excluded.
[2021-10-19 22:28] LABS: Albumin 3.4 g/dL (3.4-5.0); Bilirubin Direct 0.2 mg/dL (0-0.2); Bilirubin Total 0.9 mg/dL (0.2-1.0); Magnesium 2.2 mg/dL (1.8-2.4); Potassium 3.3 mmol/L (3.5-5.1); Protein, Total 6.6 g/dL (6.4-8.2); Troponin High Sensitivity 8.3 pg/mL (<58.9)
[2021-10-19 22:47] LABS: Urine Blood 1+ (Negative); Urine Glucose Negative (Negative); Urine Protein Negative (Negative); Urine Specific Gravity 1.015 (1.005-1.030); Urine pH 5.5 (5.0-7.0)
--- NOTE | 2021-10-20 04:05 | EDPHYS ---
Physician Documentation [facility] Name: Jyoti Doran Age: 66 yrs Sex: Female : 1955 Arrival Date: 10/19/2021 Time: 20:52 Bed 17 Private MD: ED Physician Theodore Rice HPI: 10/19 21:00 This 66 yrs old Female presents to ER via Unassigned with complaints of Chest mh7 pain. 21:00 The patient or guardian reports chest pain that is located primarily in the anterior mh7 chest wall, left. Onset: today, 1.5 hour(s) ago. The pain does not radiate. Associated signs and symptoms: Pertinent positives: nausea, shortness of breath, vomiting, Pertinent negatives: abdominal pain, cough, diaphoresis, dizziness, headache, lower extremity pain, lower extremity swelling, lightheadedness, near syncope, palpitations, recent travel, syncope. The chest pain is described as a heaviness. Duration: The patient or guardian reports multiple episodes, that are intermittent, that wax and wane, with no pattern. Modifying factors: The symptoms are alleviated by nothing. the symptoms are aggravated by nothing. Severity of pain: At its worst the pain was moderate today, in the emergency department the pain has resolved and did so just prior to arrival, after treatment by EMS personnel. Historical: - Allergies: 10/20 04:22 No Known Allergies; ll3 - Immunization history:: Client reports receiving the 1st dose of the Covid vaccine. - Social history:: Smoking status: unknown. ROS: 10/19 21:00 Constitutional: Negative for fever, chills, and weight loss, Eyes: Negative for injury, mh7 pain, redness, and discharge, ENT: Negative for injury, pain, and discharge, Neck: Negative for injury, pain, and swelling, Back: Negative for injury and pain, : Negative for injury, bleeding, discharge, and swelling, MS/Extremity: Negative for injury and deformity, Skin: Negative for injury, rash, and discoloration, Neuro: Negative for headache, weakness, numbness, tingling, and seizure, Psych: Negative for depression, anxiety, suicide ideation, homicidal ideation, and hallucinations, Allergy/Immunology: Negative for hives, rash, and allergies, Endocrine: Negative for neck swelling, polydipsia, polyuria, polyphagia, and marked weight changes. Exam: 21:00 Constitutional: This is a well developed, well nourished patient who is awake, alert, mh7 and in no acute distress. Head/Face: Normocephalic, atraumatic. Eyes: Pupils equal round and reactive to light, extra-ocular motions intact. Lids and lashes normal. Conjunctiva and sclera are non-icteric and not injected. Cornea within normal limits. Periorbital areas with no swelling, redness, or edema. Neck: Trachea midline, no thyromegaly or masses palpated, and no cervical lymphadenopathy. Supple, full range of motion without nuchal rigidity, or vertebral point tenderness. No Meningismus. Chest/axilla: Normal chest wall appearance and motion. Nontender with no deformity. No lesions are appreciated. Cardiovascular: Regular rate and rhythm with a normal S1 and S2. No gallops, murmurs, or rubs. Normal PMI, no JVD. No pulse deficits. Respiratory: Lungs have equal breath sounds bilaterally, clear to auscultation and percussion. No rales, rhonchi or wheezes noted. No increased work of breathing, no retractions or nasal flaring. Abdomen/GI: Soft, non-tender, with normal bowel sounds. No distension or tympany. No guarding or rebound. No evidence of tenderness throughout. Back: No spinal tenderness. No costovertebral tenderness. Full range of motion. Skin: Warm, dry with normal turgor. Normal color with no rashes, no lesions, and no evidence of cellulitis. MS/ Extremity: Pulses equal, no cyanosis. Neurovascular intact. Full, normal range of motion. Neuro: Awake and alert, GCS 15, oriented to person, place, time, and situation. Cranial nerves II-XII grossly intact. Motor strength 5/5 in all extremities. Sensory grossly intact. Cerebellar exam normal. Normal gait. Psych: Awake, alert, with orientation to person, place and time. Behavior, mood, and affect are within normal limits. Vital Signs: 21:05 BP 105 / 82; Pulse 68; Resp 16 S; Temp 97.6(O); Pulse Ox 100% on R/A; Weight 78.93 kg; ag7 Height 4 ft. 11 in. (149.86 cm); Pain 07/18; 10/20 02:45 BP 136 / 70; Pulse 57; Resp 17; Pulse Ox 96% on R/A; ll3 10/19 21:05 Body Mass Index 35.14 (78.93 kg, 149.86 cm) ag7 MDM: 03:56 Differential diagnosis: acute myocardial infarction, acute pericarditis, anxiety, mh7 coronary artery disease chest wall pain, congestive heart failure costochondritis, esophagitis, gastritis, gastroesophageal reflux disease (GERD), myocarditis, pericarditis, pleurisy, pneumonia, pneumothorax. HEART Score: History: Slightly Suspicious (0), ECG: Non specific repolarization disturbance / LBTB / PM (1), Age: > or = 65 years (2), Risk Factors: 1 or 2 risk factors (1), [Hypertension] Troponin: < or = 1 x Normal Limit (0), Total Score = 4. Data reviewed: vital signs, nurses notes, EMS record, lab test result(s), cardiac enzymes, CBC, drug level(s), alcohol, electrolytes, EKG, radiologic studies, plain films. Data interpreted: Pulse oximetry: on room air is 96 %. Interpretation: normal. Counseling: I had a detailed discussion with the patient and/or guardian regarding: the historical points, exam findings, and any diagnostic results supporting the discharge/admit diagnosis, the presence of at least one elevated blood pressure reading (>120/80) during this emergency department visit, lab results, radiology results, to return to the emergency department if symptoms worsen or persist or if there are any questions or concerns that arise at home. Counseling: I had a detailed discussion with the patient and/or guardian regarding: the need for further work-up and treatment in the hospital. Response to treatment: the patient's symptoms have resolved after treatment, the patient's blood pressure is in an acceptable range, mental status has returned to baseline, the patient no longer shows bradycardia, the patient is not short of breath, the patient is not tachycardic, the patient's pain is gone, the patient's temperature has normalized, the patient is now symptom free, patient is well hydrated. Refusal of service: The patient/guardian displays adequate decision making capability and despite a detailed discussion of alternatives, benefits, risks, and consequences refuses: Admission to the hospital for further work-up and treatment. ED course: Feels better, well appearing, NAD, VSS, no focal neuro deficits. No chest pain, SOB, nausea, vomiting, or other complaints. Discussed all test results and findings. Recommended admission for observation but she declined. Explained possibility of permanent disability and/or if serious medical problem present and goes untreated. She verbalized that she understood this information as presented. She knows that she can return to the ER if she has any concerns.. 04:04 Patient medically screened. [facility] 10/19 21:10 Order name: Basic Metabolic Panel; Complete Time: 22: [facility] 10/19 21:10 Order name: CBC with Diff; Complete Time: 22: [facility] 10/19 21:10 Order name: LFT's; Complete Time: : [facility] 10/19 21:10 Order name: Magnesium; Complete Time: : [facility] 10/19 21:10 Order name: NT PRO-BNP; Complete Time: : [facility] 10/19 21:10 Order name: PT-INR; Complete Time: : [facility] 10/19 21:10 Order name: Troponin HS; Complete Time: 22: [facility] 10/19 21:10 Order name: XRAY Chest (1 view); Complete Time: 22: [facility] 10/19 21:10 Order name: EKG; Complete Time: : [facility] 10/19 21:10 Order name: Cardiac monitoring; Complete Time: : [facility] 10/19 21:10 Order name: EKG - Nurse/Tech; Complete Time: : [facility] 10/19 21:10 Order name: IV Saline Lock; Complete Time: : [facility] 10/19 21:11 Order name: ETOH Level; Complete Time: 22: [facility] 10/19 22:47 Order name: Urine Dipstick-Ancillary; Complete Time: 23:01 [facility] 10/19 21:10 Order name: Labs collected and sent; Complete Time: 21:50 [facility] 10/19 21:10 Order name: O2 Per Protocol; Complete Time: : [facility] 10/19 21:10 Order name: O2 Sat Monitoring; Complete Time: 21:25 [facility] 10/19 21:11 Order name: Urine Dipstick-Ancillary (obtain specimen); Complete Time: 22:49 7 Administered Medications: No medications were administered Disposition Summary: 10/20/21 04:04 Discharge Ordered Location: Home [facility] Problem: new [facility] Symptoms: are resolved [facility] Condition: Stable [facility] Diagnosis - Chest pain, unspecified [facility] - Alcohol use, unspecified with intoxication [facility] Followup: [facility] - With: Private Physician - When: 1 - 2 days - Reason: Worsening of condition, Recheck today's complaints, Continuance of care, Re-evaluation by your physician Discharge Instructions: - Discharge Summary Sheet [facility] - Nonspecific Chest Pain, Adult, [id number] [facility] Forms: - Medication Reconciliation Form [facility] - Thank You Letter [facility] - Antibiotic Education [facility] - Prescription Opioid Use [facility] Signatures: Dispatcher [employer] Theodore Rolle MD MD [facility] Shama Thomas RN RN ll3
--- NOTE | 2021-10-20 04:05 | ER ---
Nurse's Notes [facility] Name: Jyoti Doran Age: 66 yrs Sex: Female : 1955 Arrival Date: 10/19/2021 Time: 20:52 Bed 17 Private MD: Diagnosis: Chest pain, unspecified;Alcohol use, unspecified with intoxication Presentation: 10/19 21:05 Chief complaint: EMS states: Report patient vomiting, nauseated, diaphoretic, weak, ag7 chest pain and pressure. Coronavirus screen: Client denies travel out of the [place] in the last 14 days. At this time, the client does not indicate any symptoms associated with coronavirus-19. Ebola Screen: Patient negative for fever greater than or equal to 101.5 degrees Fahrenheit, and additional compatible Ebola Virus Disease symptoms Patient denies exposure to infectious person. Patient denies travel to an Ebola-affected area in the 21 days before illness onset. Initial Sepsis Screen: Does the patient meet any 2 criteria? No. Patient's initial sepsis screen is negative. Does the patient have a suspected source of infection? No. Patient's initial sepsis screen is negative. Risk Assessment: Do you want to hurt yourself or someone else? Unable to obtain. Onset of symptoms was October 19, 2021. Care prior to arrival: Medication(s) given: ASA, 324 mg Normal saline infusion, 500 mL, Nitroglycerin, 0.4 mg SL zofran 4 mg, IV initiated. 20 GA, in the right hand. 21:05 Method Of Arrival: EMS: [facility] ag7 21:05 Acuity: NATALY 2 ag7 Triage Assessment: 10/20 04:00 General: Appears comfortable, Behavior is calm, cooperative. Pain: Denies pain. Neuro: ll3 Level of Consciousness is awake, alert, obeys commands, Oriented to person, place, time, situation. Cardiovascular: Patient's skin is warm and dry. Derm: Skin is pink, warm \T\ dry. Historical: - Allergies: 04:22 No Known Allergies; ll3 - Immunization history:: Client reports receiving the 1st dose of the Covid vaccine. - Social history:: Smoking status: unknown. Screenin:17 Abuse screen: Denies threats or abuse. Nutritional screening: No deficits noted. ll3 Tuberculosis screening: No symptoms or risk factors identified. 04:22 Fall Risk No fall in past 12 months (0 pts). No secondary diagnosis (0 pts). IV access ll3 (20 points). Ambulatory Aid- None/Bed Rest/Nurse Assist (0 pts). Gait- Normal/Bed Rest/Wheelchair (0 pts) Mental Status- Oriented to own ability (0 pts). Total Perez Fall Scale indicates No Risk (0-24 pts). Vital Signs: 10/19 21:05 BP 105 / 82; Pulse 68; Resp 16 S; Temp 97.6(O); Pulse Ox 100% on R/A; Weight 78.93 kg; ag7 Height 4 ft. 11 in. (149.86 cm); Pain 07/18; 10/20 02:45 BP 136 / 70; Pulse 57; Resp 17; Pulse Ox 96% on R/A; ll3 10/19 21:05 Body Mass Index 35.14 (78.93 kg, 149.86 cm) ag7 ED Course: 10/19 20:52 Patient arrived in ED. mw2 21:02 Theodore Rice MD is Attending Physician. mh7 21:22 Virginia Canada, RN is Primary Nurse. ag7 21:32 XRAY Chest (1 view) In Process Unspecified. EDMS 21:50 ETOH Level Sent. ag7 21:50 Basic Metabolic Panel Sent. ag7 21:50 CBC with Diff Sent. ag7 21:50 LFT's Sent. ag7 21:50 Magnesium Sent. ag7 21:51 NT PRO-BNP Sent. ag7 21:51 PT-INR Sent. ag7 21:51 Troponin HS Sent. ag7 22:02 Triage completed. ag7 10/20 01:51 patient's sister [phone]. mw2 02:00 Arm band placed on. ll3 04:22 Patient has correct armband on for positive identification. Placed in gown. Bed in low ll3 position. Call light in reach. Side rails up X 1. 04:23 No provider procedures requiring assistance completed. ll3 04:55 IV discontinued, intact, bleeding controlled, No redness/swelling at site. Pressure ll3 dressing applied. Administered Medications: No medications were administered Medication: 04:21 VIS not applicable for this client. ll3 Outcome: 04:04 Discharge ordered by . mh7 04:55 Discharged to home ambulatory. ll3 04:55 Condition: stable 04:55 Discharge instructions given to patient, Instructed on discharge instructions, follow up and referral plans. Demonstrated understanding of instructions, follow-up care. 04:56 Patient left the ED. ll3 Signatures: Dispatcher [employer] [facility] [place] 2 Theodore Rice MD MD mh7 Shama Thomas RN RN 3 Virginia Canada, RN RN 7
[2021-10-20 05:01] VITALS: TEMP 97.6
[2021-10-20 05:03] VITALS: BP 136/70; O2SAT 96
--- NOTE | 2021-10-21 13:37 | EKG ---
Test Date: 2021-10-19 Test Time: 20:56:32 Sleeve Baster: LACY MEASUREMENT RESULTS: Intervals: Rate: 69 IA: 190 QRSD: 96 QT: 418 QTc: 447 [place]aca: P: 56 IA: 190 QRS: 71 T: 93 INTERPRETIVE STATEMENTS: Normal sinus rhythm Nonspecific T wave abnormality Abnormal ECG No previous ECG available for comparison Electronically Signed On 10-21-21 13:34:57 CDT by Eder Richardson
== END 2021-10-20 04:56 | disposition home or self-care (01) ==
LOC: ER 20:46
DX: R07.9 Chest pain, unspecified (principal); F10.929 Alcohol use, unspecified with intoxication, unspecified; R11.0 Nausea
CPT/HCPCS: 36415; 71045; 80048; 80076; 80320; 81003; 83735; 83880; 84484; 85025; 85610; 93005; 99283